=== PATIENT | female | born 1970 | race Hispanic/Latino ===

== ENCOUNTER 2023-05-30 04:50 | Emergency (ER) | payer BC, OTHER ==
[~2023-05-30] VITALS: Ht 172.7 cm; Wt 98.9 kg
[2023-05-30] MEDS ORDERED: ONDANSETRON 4MG INJ IVP ONE (05:30)
[2023-05-30] MEDS ORDERED: MORPHINE 4 MG SYG IVP ONE ×2 (05:30→08:30)
[2023-05-30] MEDS ORDERED: FAMOTIDINE 20MG VIAL IV ONE (05:30)
[2023-05-30] MEDS ORDERED: METRONIDAZOLE 500MG/100ML BAG 100 ML ONE (05:36)
[2023-05-30] MEDS ORDERED: METOCLOPRAMIDE 10 MG/2 ML VIAL ONE (05:36)
[2023-05-30 05:50] LABS: BASOPHILS # (AUTO) 0.03 K/uL (0.00-0.20); BASOPHILS % (AUTO) 0.3 % (0.0-5.0); EOSINOPHILS # (AUTO) 0.13 K/uL (0.00-0.70); EOSINOPHILS % (AUTO) 1.4 % (0.0-8.0); HEMATOCRIT 39.6 % (36-48); IMMATURE GRANULOCYTE ABSOLUTE 0.05 K/uL (0-1); LYMPHOCYTES # (AUTO) 2.3 K/uL (1.0-4.8); LYMPHOCYTES % (AUTO) 24.9 % (21.0-51.0); MEAN CORPUSCULAR HGB CONC 33.6 g/dL (32.0-36.0); MEAN CORPUSCULAR VOLUME 89.2 fL (79-99); MONOCYTES # (AUTO) 0.6 K/uL (0.1-1.0); NEUTROPHILS % (AUTO) 65.9 % (40.0-77.0); PLATELET COUNT (AUTO) 219 K/uL (130-400); RED BLOOD CELL COUNT(AUTO) 4.44 MIL/uL (4.00-5.50); RED CELL DISTRIBUTION WIDTH 13.1 % (11.0-15.5); WHITE BLOOD COUNT (AUTO) 9.1 K/uL (4.8-10.8)
[2023-05-30 05:53] LABS: APPEARANCE,URINE CLOUDY (CLEAR); BILIRUBIN,URINE NEGATIVE (NEGATIVE); COLOR,URINE LIGHT-YELLOW (YELLOW); GLUCOSE, URINE (UA) NEGATIVE (NEGATIVE); KETONES,URINE NEGATIVE (NEGATIVE); LEUKOCYTE ESTERASE ,URINE NEGATIVE Leu/uL (NEGATIVE); NITRATE,URINE NEGATIVE (NEGATIVE); OCCULT BLOOD,URINE NEGATIVE (NEGATIVE); PH,URINE 5.5 (5.0-8.0); PROTEIN,URINE NEGATIVE (NEGATIVE); UROBILINOGEN,URINE 0.2 mg/dL (0.2-1.0)
[2023-05-30 05:54] LABS: ADD UA MICROSCOPIC YES
[2023-05-30 05:56] LABS: CALCIUM OXALATE CRYSTALS,UR MANY /LPF (None Seen); MUCUS,URINE RARE LPF (None Seen); RBC,URINE 0-1 /HPF (0-1); SQUAMOUS EPITHELIAL CELL,UR RARE /HPF (0-2); WBC,URINE 0-1 /HPF (0-1)
[2023-05-30] MEDS ORDERED: METOCLOPRAMIDE 10 MG/2 ML VIAL IVP ONE (06:00)
[2023-05-30] MEDS ORDERED: METRONIDAZOLE 500MG/100ML BAG 100 ML IVPB ONE (06:00)
[2023-05-30 06:16] LABS: ALBUMIN 3.3 g/dL (3.5-5.0); BILIRUBIN,TOTAL 0.3 mg/dL (0.2-1.0); CREATININE 0.7 mg/dL (0.5-1.5); TOTAL PROTEIN, SERUM 7.4 g/dL (6.0-8.3)
[2023-05-30] MEDS ORDERED: 0.9%NACL 1000ML 2,000 ML IV ONE (06:30)
[2023-05-30] MEDS ORDERED: FAMO-136 PO (10:28)
[2023-05-30] MEDS ORDERED: CIPR-278 PO (10:28)
[2023-05-30 10:37] VITALS: BP 134/78; PULSE 66; RESP 18; O2SAT 98
== END 2023-05-30 10:50 | disposition home or self-care (01) ==
LOC: EDH 04:50
DX: K52.9 Noninfective gastroenteritis and colitis, unspecified (principal); I10 Essential (primary) hypertension; E11.9 Type 2 diabetes mellitus without complications; Z90.710 Acquired absence of both cervix and uterus; Z98.890 Other specified postprocedural states
CPT/HCPCS: 99284; 96365; 71045; 96375 ×2; 82550; 84484; 80053; 84702; 83690; 85025; 81001; 36415; 96376; 93005; J3490 ×2; J2405; J2270 ×2; J2765